=== PATIENT | female | born 1975 | race Caucasian/White ===

== ENCOUNTER 2016-12-14 09:21 | Emergency (ER) | payer BC ==
[~2016-12-14] VITALS: Ht 175.3 cm; Wt 99.6 kg
[~2016-12-14 09:21] MED LIST: LEXAPRO20 MG PO
[2016-12-14 12:09] LABS: HEMATOCRIT 42.8 % (36.0-46.0); MCH 29.3 PG (29.0-34.0); MCHC 33.6 G/DL (30.0-36.0); MCV 87.2 FL (83-99); MEAN PLAT.VOLUME 8.8 uM^3 (9.5-12.4); PLATELET COUNT 253 K/uL (156-360); RBC DIS.WIDTH-CV 11.8 % (11.8-14.6); RBC DIS.WIDTH-SD 37.8 % (39-53); RED BLOOD COUNT 4.91 M/uL (3.80-5.20)
[2016-12-14 12:27] LABS: CHLORIDE 103 mEq/L (99-109); POTASSIUM 4.3 mEq/L (3.7-5.4); SODIUM 139 mEq/L (136-147)
[2016-12-14 12:29] LABS: GLUCOSE 77 mg/dL (70-99)
[2016-12-14 12:30] LABS: ANION GAP 10 MEQ/L (2-14)
[2016-12-14 12:33] LABS: GFR ESTIMATE (CALCULATED) > 59 mL/min/
[2016-12-14 12:34] LABS: UREA NITROGEN (BUN) 8 mg/dL (9-23)
[2016-12-14 12:42] LABS: QUANTITATIVE HCG < 4.0 MIU/ML
[2016-12-14 13:49] VITALS: BP 117/73
== END 2016-12-14 13:59 | disposition home or self-care (01) ==
LOC: EME 09:21
PROVIDERS: Nurse Practitioner Family
DX: N76.0 Acute vaginitis (principal)
CPT/HCPCS: 72193; 80048; 84702; 85027; 99281; 99284; J7030

== ENCOUNTER 2017-09-18 17:12 | Emergency (ER) | payer BC ==
[~2017-09-18] VITALS: Ht 175.3 cm; Wt 100.0 kg
[2017-09-18 18:42] VITALS: BP 124/62
== END 2017-09-18 18:43 | disposition home or self-care (01) ==
LOC: EME 17:12
DX: S93.401A Sprain of unspecified ligament of right ankle, initial encounter (principal); W10.9XXA Fall (on) (from) unspecified stairs and steps, initial encounter; X50.1XXA Overexertion from prolonged static or awkward postures, initial encounter
CPT/HCPCS: 73610; 73630; 99281; 99284